=== PATIENT | male | born 1985 | race Hispanic/Latino ===

== ENCOUNTER 2017-01-19 18:23 | Emergency (ER) | payer OTHER ==
[2017-01-19 18:42] VITALS: RESP 16; TEMP 98.3; BMI 39.9
[2017-01-19] MEDS ORDERED: Naproxen 550 mg Tab PO STA (19:13)
--- NOTE | 2017-01-19 20:01 | ED PDOC ---
Arrival/HPI - General Chief Complaint: Lower Extremity Problem/Injury Time Seen by Provider: 01/19/17 18:48 Historian: Patient - History of Present Illness Narrative History of Present Illness (Text): 01/19/17 19:57 Patient reports injury to the left great toe, when he weight fell on top of it 3 days ago, no reports of pain, swelling and bruising with possibility of the "nail falling off." Denies any numbness, decrease in range of motion, or any other injury. Patient has no other complaints at this time. Past Medical History - Provider Review Nursing Documentation Reviewed: Yes - Psychiatric Hx Anxiety: Yes Hx Depression: Yes Hx Substance Use: No - Surgical History Other/Comment: carpal tunnel and ortho Family/Social History - Physician Review Nursing Documentation Reviewed: Yes Family/Social History: No Known Family HX Smoking Status: Never Smoked Hx Alcohol Use: No Hx Substance Use: No Allergies/Home Meds Allergies/Adverse Reactions: Allergies acetaminophen [From Tylenol] Allergy (Verified 01/19/17 19:12) RASH Home Medications: Home Meds Medication Instructions Recorded Confirmed Sertraline [Zoloft] 50 mg PO DAILY 01/19/17 01/19/17 buPROPion XL [Wellbutrin XL] 300 mg PO DAILY 01/19/17 01/19/17 Review of Systems - Review of Systems Constitutional: Normal. absent: Fatigue, Weight Change, Fevers Musculoskeletal: Normal, Arthralgias. absent: Back Pain, Neck Pain Skin: Normal. absent: Rash, Pruritis, Skin Lesions Physical Exam - Physical Exam Narrative Physical Exam (Text): 01/19/17 19:58 GENERAL APPEARANCE: Patient is awake, alert, oriented x 3, in no acute distress. SKIN: Warm, dry, (-) skin leasions or rashes. LOWER EXTREMITY: (+) Tenderness, (+) swelling, (+) ecchymosis of the dorsal distal L 1st phalanx, (+) nail intact with subungual hematoma, (-) crepitus, (- ) deformity. Tendon function intact. (-) distal neurovascular deficit. + 2 point discrimination. Remainder of foot, digits and ankle: (-) injury except. Vital Signs Temp Pulse Resp BP Pulse Ox 01/19/17 18:39 98.3 F 103 H 16 147/98 H 97 Medical Decision Making ED Course and Treatment: 01/19/17 19:59 32 yo M sustained injury to the L great toe, nail is intact. On exam, patient is noted to have a subungual hematoma. XR ordered, naprosyn given for pain. XR left great toe: no fracture, no dislocation, as read by PA Patient advised that official radiology read of XR is still pending and will call the patient if there is any discrepancy within 24 hours. X-ray results discussed with the patient in great detail. Hematoma was evacuated via cautery by PA. Clean dressing was applied to the toe. Based on history, exam and diagnostic results plan will be for patient follow- up. Patient states he fully agrees with and understands discharge instructions. States that he agrees with the plan and disposition. Verbalized and repeated discharge instructions and plan. I have given the patient opportunity to ask any additional questions. Follow up with primary care physician in 1-2 days without fail. Return to the emergency room at any time for any new or worsening symptoms. - RAD Interpretation Radiology Orders: 01/19/17 19:13 FOOT LEFT GREAT TOE ROUTINE [RAD] Stat - Medication Orders Current Medication Orders: Discontinued Medications Naproxen (Anaprox Ds) 550 mg PO ONCE STA Stop: 01/19/17 19:14 Last Admin: 01/19/17 19:20 Dose: 550 mg - PA / MANAGER DATABASE ADMINISTRATION / Resident Statement /DO has reviewed & agrees with the documentation as recorded. Disposition/Present on Arrival - Present on Arrival Any Indicators Present on Arrival: No History of DVT/PE: No History of Uncontrolled Diabetes: No Urinary Catheter: No History of Decub. Ulcer: No History Surgical Site Infection Following: None - Disposition Have Diagnosis and Disposition been Completed?: Yes Diagnosis: Toe contusion, Subungual hematoma Disposition: HOME/ ROUTINE Disposition Time: 20:30 Patient Plan: Discharge Patient Problems: Current Active Problems Problem Status Onset Toe contusion Acute Subungual hematoma Acute Condition: GOOD Discharge Instructions (ExitCare): Subungual Hematoma (ED), Foot Contusion (ED) Print Language: HAITIAN Additional Instructions: Thank you for letting us take care of you today. You were treated for a contusion, subungual hematoma. The emergency medical care you received today was directed at your acute symptoms. If you were prescribed any medication, please fill it and take as directed. It may take several days for your symptoms to resolve. Return to the Emergency Department if your symptoms worsen, do not improve, or if you have any other problems. Please contact your doctor in 2 days for re-evaluation and follow up / or call one of the physicians/clinics you have been referred to that are listed on the Patient Visit Information form that is included in your discharge packet. Bring any paperwork you were given at discharge with you along with any medications you are taking to your follow up visit. Our treatment cannot replace ongoing medical care by a primary care provider (PCP) outside of the emergency department. Thank you for allowing the [facility] team to be part of your care today. If you had an X-Ray : A Radiologist will review the ED reading if any change in treatment is needed we will contact you. Referrals: Manuel Welch, [Primary Care Provider] - [place] up [place] [facility] [place] - Follow up with primary Forms: WORK NOTE
[2017-01-19 21:08] VITALS: BP 140/89; PULSE 100; O2SAT 98
--- NOTE | 2017-01-20 08:34 | RAD ---
PROCEDURE: Left Foot Radiographs. HISTORY: trauma COMPARISON: None. FINDINGS: BONES: Normal. No fracture. JOINTS: Normal. SOFT TISSUES: Normal. OTHER FINDINGS: None. IMPRESSION: Normal left foot radiographs.
== END 2017-01-19 21:09 | disposition home or self-care (01) ==
LOC: ED 18:23
DX: S90.112A Contusion of left great toe without damage to nail, initial encounter (principal); W22.8XXA Striking against or struck by other objects, initial encounter; Y93.89 Activity, other specified; Y92.89 Other specified places as the place of occurrence of the external cause

== ENCOUNTER 2017-02-17 22:45 | Emergency (ER) | payer OTHER ==
[2017-02-17 22:45] VITALS: BMI 39.9
--- NOTE | 2017-02-17 23:30 | ED PDOC ---
Arrival/HPI - General Historian: Patient <MIN DENT - Last Filed: 02/18/17 00:29> <Ck Dyson DO - Last Filed: 02/18/17 06:27> - General Chief Complaint: Male Genitourinary Time Seen by Provider: 02/17/17 23:15 - History of Present Illness Narrative History of Present Illness (Text): 02/17/17 23:29 Mr. Rodríguez is a 32 yo male who presents to the emergency department complaining of urinary retention for past 12 hours. Pt reports only having a limited stream this AM with minimal urinary output. He has a history of urinary retention over the past year for which he sees a urologist regularly. He reports self cath at home and has run out of his supplies. He denies fever and abdominal pain. He also complains of right ankle pain after slipping in his shower yesterday. He states that his right lateral ankle and ball of foot are where pain is primarily located. He is able to ambulate with some discomfort and denies any loss of feeling in his right foot. He has taken Aleve today without relieve of his symptoms. (MIN DENT) Past Medical History - Provider Review Nursing Documentation Reviewed: Yes - Infectious Disease Hx of Infectious Diseases: None - Cardiac Hx Cardiac Disorders: No - Pulmonary Hx Respiratory Disorders: No - Neurological Hx Neurological Disorder: No - HEENT Hx HEENT Disorder: No - Renal Hx Renal Disorder: No - Endocrine/Metabolic Hx Endocrine Disorders: No - Hematological/Oncological Hx Blood Disorders: No - Integumentary Hx Dermatological Disorder: No - Musculoskeletal/Rheumatological Hx Musculoskeletal Disorders: No - Gastrointestinal Hx Gastrointestinal Disorders: No - Genitourinary/Gynecological Other/Comment: Urinary Retention - Psychiatric Hx Anxiety: Yes Hx Depression: Yes Hx Substance Use: No - Surgical History Other/Comment: carpal tunnel and ortho <MIN DENT - Last Filed: 02/18/17 00:29> <Ck Dyson DO - Last Filed: 02/18/17 06:27> - Patient History Narrative Patient History: Pt reports history of urinary retention for past year. States related to stress. (MIN DENT) Family/Social History - Physician Review Nursing Documentation Reviewed: Yes Family/Social History: No Known Family HX Smoking Status: Never Smoked Hx Alcohol Use: Yes Frequency of alcohol use: Socially Hx Substance Use: No <MIN DENT - Last Filed: 02/18/17 00:29> Allergies/Home Meds <MIN DENT - Last Filed: 02/18/17 00:29> <Ck Dyson DO - Last Filed: 02/18/17 06:27> Allergies/Adverse Reactions: Allergies acetaminophen [From Tylenol] Allergy (Verified 01/19/17 19:12) RASH Review of Systems - Review of Systems Constitutional: absent: Fatigue, Fevers Eyes: absent: Vision Changes, Photophobia Respiratory: absent: SOB, Cough Cardiovascular: absent: Chest Pain, Palpitations, Edema Gastrointestinal: absent: Abdominal Pain, Constipation, Diarrhea, Nausea Genitourinary Male: Urinary Output Changes, Other (urinary retention ) Musculoskeletal: Myalgias (Right ankle and foot pain ) Skin: absent: Rash, Pruritis, Skin Lesions Neurological: absent: Headache, Dizziness, Focal Weakness Endocrine: absent: Diaphoresis, Polyuria, Polydipsia Hemo/Lymphatic: absent: Adenopathy, Easy Bleeding, Easy Bruising Psychiatric: absent: Anxiety, Depression <MIN DENT - Last Filed: 02/18/17 00:29> Physical Exam Vital Signs Reviewed: Yes Temperature: Afebrile Blood Pressure: Normal Pulse: Regular Respiratory Rate: Normal Appearance: Positive for: Well-Appearing Mental Status: Positive for: Alert and Oriented X 3 - Systems Exam Head: Present: Atraumatic, Normocephalic Pupils: Present: PERRL Extroacular Muscles: Present: EOMI Conjunctiva: Present: Normal Mouth: Present: Moist Mucous Membranes Neck: Present: Normal Range of Motion. No: JVD Respiratory/Chest: Present: Clear to Auscultation, Good Air Exchange, Respiratory Distress. No: Wheezes Cardiovascular: Present: Regular Rate and Rhythm, Murmurs, Normal S1, S2, Peripheal Pulses Present Abdomen: Present: Normal Bowel Sounds. No: Tenderness, Distention, Peritoneal Signs Upper Extremity: Present: Normal ROM. No: Cyanosis, Edema Lower Extremity: Present: NORMAL PULSES, Tenderness (right lateral ankle and lateral fifth metatarsal ). No: Edema, Normal ROM (right ankle with limited range of motion ) Neurological: Present: GCS=15, Speech Normal Skin: Present: Warm, Normal Color. No: Rashes Psychiatric: Present: Alert, Oriented x 3, Normal Insight, Normal Concentration <MIN DENT - Last Filed: 02/18/17 00:29> <Ck Dyson DO - Last Filed: 02/18/17 06:27> Vital Signs Pulse Resp BP Pulse Ox 02/18/17 00:45 92 H 148/78 96 02/17/17 23:15 90 14 145/80 97 Medical Decision Making Reassessment Condition: Improved <MIN DENT - Last Filed: 02/18/17 00:29> <Ck Dyson DO - Last Filed: 02/18/17 06:27> ED Course and Treatment: 02/18/17 00:58 Impression: 1. Urinary retention 2. Right ankle sprain Differential Diagnosis included but are not limited to: Plan: - Right ankle x-ray - Motrin - Gilles wrap of right ankle - Urinary cath placement - Reassess and disposition Progress Notes: (MIN DENT) - RAD Interpretation Radiology Orders: 02/17/17 23:43 ANKLE RIGHT 3 VIEWS ROUTINE [RAD] Stat - Medication Orders Current Medication Orders: Discontinued Medications Ibuprofen (Motrin Tab) 600 mg PO STAT STA Stop: 02/17/17 23:46 Last Admin: 02/17/17 23:51 Dose: 600 mg Disposition/Present on Arrival - Present on Arrival Any Indicators Present on Arrival: No History of DVT/PE: No History of Uncontrolled Diabetes: No Urinary Catheter: No History of Decub. Ulcer: No History Surgical Site Infection Following: None - Disposition Have Diagnosis and Disposition been Completed?: Yes Patient Plan: Discharge <MIN DENT - Last Filed: 02/18/17 00:29> - Disposition Disposition Time: 00:15 <Ck Dyson DO - Last Filed: 02/18/17 06:27> - Disposition Diagnosis: Ankle sprain, Right ankle sprain, Urinary retention Disposition: HOME/ ROUTINE Condition: IMPROVED Discharge Instructions (ExitCare): Ankle Sprain (ED) Additional Instructions: Thank you for letting us take care of you today. You were treated for ankle/ foot pain. The emergency medical care you received today was directed at your acute symptoms. If you were prescribed any medication, please fill it and take as directed. It may take several days for your symptoms to resolve. Return to the Emergency Department if your symptoms worsen, do not improve, or if you have any other problems. Please contact your doctor or call one of the physicians/clinics you have been referred to that are listed on the Patient Visit Information form that is included in your discharge packet. Bring any paperwork you were given at discharge with you along with any medications you are taking to your follow up visit. Our treatment cannot replace ongoing medical care by a primary care provider (PCP) outside of the emergency department. Thank you for allowing the [email or web address] team to be part of your care today. Follow up with your doctor in 2-3 days for re-evaluation. Prescriptions: Ibuprofen [Motrin] 600 mg PO Q6 PRN #20 tab PRN Reason: Pain, Moderate (4-7) Referrals: Manuel Welch, [Non-Staff] - Follow up with primary
[2017-02-18 00:45] VITALS: BP 148/78; PULSE 92; O2SAT 96
[2017-02-18 00:46] VITALS: RESP 14
--- NOTE | 2017-02-18 09:25 | RAD ---
PROCEDURE: Right Ankle Radiographs. HISTORY: Right ankle sprain COMPARISON: None FINDINGS: BONES: Normal. No fracture. JOINTS: Normal. No osteoarthritis. Ankle mortise maintained. Talar dome intact SOFT TISSUES: Normal. OTHER FINDINGS: None. IMPRESSION: Normal right ankle radiographs.
== END 2017-02-18 01:22 | disposition home or self-care (01) ==
LOC: ED 22:45
DX: S93.401A Sprain of unspecified ligament of right ankle, initial encounter (principal); W18.2XXA Fall in (into) shower or empty bathtub, initial encounter; Y93.E1 Activity, personal bathing and showering; Y92.002 Bathroom of unspecified non-institutional (private) residence as the place of occurrence of the external cause; R33.9 Retention of urine, unspecified